=== PATIENT | male | born 1945 | race Caucasian/White ===

== ENCOUNTER → 2018-04-26 | Outpatient (CLI) | payer OTHER ==
[~2018-04-26] MED LIST: ASPIRIN81 M2 PO; CLONAZEPAM0.5 MG PO; DONEPEZIL HCL5 MG PO; ESCITALOPRAM OX10 MG PO; ESCITALOPRAM OX20 MG PO; KEFLEX500 MG PO; LEXAPRO20 MG PO; LIPITOR40 MG PO; PERCOCET 5/31 TABLET PO; PLAVIX75 MG PO; ROPINIROLE HCL6 MG PO; metoprolol PO
== END | disposition home or self-care (01) ==
DX: Z01.818 Encounter for other preprocedural examination (principal); M17.11 Unilateral primary osteoarthritis, right knee; R26.2 Difficulty in walking, not elsewhere classified; M25.561 Pain in right knee; M25.661 Stiffness of right knee, not elsewhere classified; Z74.1 Need for assistance with personal care; M62.81 Muscle weakness (generalized)
CPT/HCPCS: 97161 GP; 97165 GO; 97530 GP; 97535 GO; G8978 GP; G8979 GP; G8980 GP; G8987 GO; G8988 GO; G8989 GO